=== PATIENT | female | born 1995 | race American Indian/Alaskan Native ===

== ENCOUNTER 2016-10-14 13:05 | Observation (INO) | payer OTHER ==
[2016-10-14 13:14] VITALS: BP 117/30; PULSE 89; RESP 16; TEMP 98.1; O2SAT 99
--- NOTE | 2016-10-14 13:29 | ED PDOC ---
HPI: Abdomen Time Seen by Provider: 10/14/16 13:15 Chief Complaint (Nursing): Abdominal Pain Chief Complaint (Provider): abdominal pain History Per: Patient (21 y/o female brought to ED for evaluation of lower abdominal pain noted since last night at 4am. Patient states symptoms began at night suddenly and continued today. Denies any dysuria/urinary fequency/ hematuria.) Past Medical History Reviewed: Historical Data, Nursing Documentation, Vital Signs Vital Signs: Last Vital Signs Temp 98.1 F 10/14/16 13:11 Pulse 89 10/14/16 13:11 Resp 16 10/14/16 13:11 BP 117/30 L 10/14/16 13:11 Pulse Ox 99 10/14/16 19:18 - Family History Family History: States: No Known Family Hx - Home Medications Home Medications: Ambulatory Orders Medication Instructions Recorded Miconazole Nitrate [Monistat 3] 200 mg VG DAILY #1 packet 12/12/13 Naproxen [Naprosyn Tab] 375 mg PO Q8 PRN #15 tab 10/14/16 - Allergies Allergies/Adverse Reactions: Allergies Allergy/AdvReac Type Severity Reaction Status Date / Time No Known Allergies Allergy Verified 12/12/13 22:28 Review of Systems ROS Statement: Except As Marked, All Systems Reviewed And Found Negative Gastrointestinal: Positive for: Abdominal Pain Physical Exam - Reviewed Nursing Documentation Reviewed: Yes Vital Signs Reviewed: Yes - Physical Exam Appears: Positive for: Well, Non-toxic, No Acute Distress Head Exam: Positive for: ATRAUMATIC, NORMAL INSPECTION, NORMOCEPHALIC Skin: Positive for: Normal Color, Warm, DRY Eye Exam: Positive for: EOMI, Normal appearance, PERRL ENT: Positive for: Normal ENT Inspection Neck: Positive for: Normal, Painless ROM Cardiovascular/Chest: Positive for: Regular Rate, Rhythm Respiratory: Positive for: CNT, Normal Breath Sounds Gastrointestinal/Abdominal: Positive for: Normal Exam, Bowel Sounds, Soft Back: Positive for: Normal Inspection Extremity: Positive for: Normal ROM Neurologic/Psych: Positive for: Alert, Oriented - Laboratory Results Result Diagrams: 10/14/16 13:55 10/14/16 13:55 Urine POC: Negative Urine dip results: Negative for: Leukocyte Esterase, Blood, Nitrate, Ketones, Glucose, Bilirubin, Protein - ECG O2 Sat by Pulse Oximetry: 99 - Progress ED Course And Treament: PELVIC us: FREE FLUID CT OF ABD/PELVIS: IMPRESSION: 1. There is a 2.6 cm right ovarian cyst and there is mild free fluid in the pelvis, cannot exclude ovarian cyst rupture. 2. The appendix is unremarkable. Thank you for allowing us to participate in the care of your patient. MORPHINE 2 MG IV X 1 DOSE ED OBSERVATION Date of observation admission: 10/14/16 Time of observation admission: 15:30 - Observation admission statement Patient is being placed in observation because:: persistent abdominal pain - Goals of Observation Goals of observation are:: evaluate cause of abdominal pain - Progress Note Progress Note: 10/14/16 15:33 US pelvic: free fluid noted. Pelvic exam in ED wnl. Patient has persistent lower abdominal pain. d/w her possibility of appendicits. Will prep for CT abd/pelvis. 10/14/16 19:15 MORPHINE 2 MG IV X [address] ABD/PELVIS: IMPRESSION: 1. There is a 2.6 cm right ovarian cyst and there is mild free fluid in the pelvis, cannot exclude ovarian cyst rupture. 2. The appendix is unremarkable. Thank you for allowing us to participate in the care of your patient. 10/14/16 19:17 WILL TREAT FOR POSSIBLE PID ROCEPHIN 250MG IM X 1 DOSE ZITHROMAX 1 GM Disposition - Clinical Impression Clinical Impression: Pelvic pain - Patient ED Disposition Is Patient to be Admitted: No - Disposition Disposition: Routine/Home Disposition Time: 19:16 Condition: FAIR
[2016-10-14 14:17] LABS: BASO % 0.4 % (0.0-2.0); EOS % 0.4 % (0.0-4.0); HEMOGLOBIN 13.9 g/dL (12.0-16.0); LYMPH # 1.7 K/uL (1.0-4.3); LYMPH % 19.1 % (20.0-40.0); MEAN CELL VOLUME 90.8 fl (81.0-99.0); MEAN CORPUSCULAR HEMOGLOBIN 30.4 pg (27.0-31.0); MEAN CORPUSCULAR HGB CONC 33.5 g/dL (33.0-37.0); MEAN PLATELET VOLUME 8.4 fl (7.2-11.7); MONO # 0.8 K/uL (0.0-0.8); MONO % 8.4 % (0.0-10.0); NEUT # 6.4 K/uL (1.8-7.0); NEUT % 71.7 % (50.0-75.0); RBC 4.56 Mil/uL (3.80-5.20); RED CELL DISTRIBUTION WIDTH 12.6 % (11.5-14.5); WHITE BLOOD COUNT 8.9 K/uL (4.8-10.8)
[2016-10-14 14:26] LABS: ALB/GLOB RATIO 1.7 (1.0-2.1); ALT/SGPT 26 U/L (9-52); AST/SGOT 23 U/L (14-36); BLOOD UREA NITROGEN 9 mg/dl (7-17); CALCIUM 9.8 mg/dL (8.4-10.2); GFR AFRICAN-AMERICAN > 60; GFR NON-AFRICAN AMERICAN > 60; LIPASE 52 U/L (23-300)
[2016-10-14 14:27] LABS: SQUAMOUS EPITHIAL 3 /hpf (0-5); URINE BACTERIA RARE (<OCC); URINE BILIRUBIN NEGATIVE (NEGATIVE); URINE BLOOD NEGATIVE (NEGATIVE); URINE CLARITY SLIGHTY-CLOUDY (Clear); URINE COLOR YELLOW (YELLOW); URINE GLUCOSE (UA) NEG (Normal); URINE LEUKOCYTE ESTERASE NEG Leu/uL (Negative); URINE NITRATE NEGATIVE (NEGATIVE); URINE PROTEIN NEGATIVE (NEGATIVE); URINE UROBILINOGEN 0.2-1.0 mg/dL (0.2-1.0)
--- NOTE | 2016-10-14 14:45 | US ---
PROCEDURE: HISTORY: bilateral lower abd pain/ evaluate ovarian cyst COMPARISON: TECHNIQUE: FINDINGS: The uterus measures 7.5 x 3.1 x 4.4 centimeters. The endometrium measures 5 millimeters. The right ovary measures 3.0 x 2.4 centimeters. The left ovary measures 3.0 x 2.2 centimeters. There is a moderate amount of free fluid in the cul-de-sac. IMPRESSION: Moderate amount of free fluid in the cul-de-sac; correlate clinically. Otherwise unremarkable examination.
[2016-10-14] MEDS ORDERED: Iohexol 240 (50 ml) PO ONE (15:31)
[2016-10-14] MEDS ORDERED: Iohexol 240 (50 ml) ONE (15:44)
[2016-10-14] MEDS ORDERED: Sodium Chloride 0.9% 50 ML IV ONE (17:39)
[2016-10-14] MEDS ORDERED: Iohexol 300 100 ML IJ ONE (17:39)
[2016-10-14] MEDS ORDERED: cefTRIAXone (Rocephin) 250 mg Inj IM ONE (19:16)
[2016-10-14] MEDS ORDERED: cefTRIAXone (Rocephin) 250 mg Inj ONE (19:48)
[2016-10-14] MEDS ORDERED: Sterile Water 10 ML IV ONE (19:50)
[2016-10-14] MEDS ORDERED: Lidocaine 1% Inj (20ml) ONE (19:50)
--- NOTE | 2016-10-15 09:36 | CT ---
PROCEDURE: CT Abdomen and Pelvis with contrast HISTORY: abd pain COMPARISON: None. TECHNIQUE: Contrast dose: 100 cc of Omnipaque Radiation dose: Total exam DLP = 308 mGy-cm. This CT exam was performed using one or more of the following dose reduction techniques: Automated exposure control, adjustment of the mA and/or kV according to patient size, and/or use of iterative reconstruction technique. FINDINGS: LOWER THORAX: Unremarkable. LIVER: Unremarkable. No gross lesion or ductal dilatation. GALLBLADDER AND BILE DUCTS: Unremarkable. PANCREAS: Unremarkable. No gross lesion or ductal dilatation. SPLEEN: Unremarkable. ADRENALS: Unremarkable. No mass. KIDNEYS AND URETERS: Unremarkable. No hydronephrosis. No solid mass. VASCULATURE: Unremarkable. No aortic aneurysm. BOWEL: Unremarkable. No obstruction. No gross mural thickening. APPENDIX: Normal appendix. PERITONEUM: Unremarkable. No free fluid. No free air. LYMPH NODES: Unremarkable. No enlarged lymph nodes. BLADDER: Unremarkable. REPRODUCTIVE: 2.1 centimeter right ovarian involuting cyst with small free fluid in the pelvis.. BONES: No acute fracture. OTHER FINDINGS: None. IMPRESSION: 2.1 centimeter right ovarian involuting cyst with small free fluid in the pelvis
== END 2016-10-14 20:15 | disposition home or self-care (01) ==
LOC: H.ER 13:05 → H.EROBSV 15:31
PROVIDERS: ADMIT Emergency Medicine; ATTEND Emergency Medicine
DX: R10.2 Pelvic and perineal pain (principal); N83.201 Unspecified ovarian cyst, right side; N73.9 Female pelvic inflammatory disease, unspecified